=== PATIENT | male | born 1990 | race Caucasian/White ===

== ENCOUNTER → 2022-08-19 09:31 | Outpatient (CLI) | payer BC, SELFPAY ==
--- NOTE | 2022-08-19 | DI.US.S_ITS ---
PROCEDURE: US SCROTUM INDICATIONS: ATRESIA OF VAS DEFERENS TECHNIQUE: Real-time scanning was performed of the scrotum and testicles, with image documentation. Color and pulse Doppler interrogation was performed of both testicles. COMPARISON: None. FINDINGS: Bilateral vas deferens not visualized. Right: Testicle is normal in size at 5.1 x 1.8 x 3.1 cm. There is a 3 mm cyst within the right testis. Epididymis is normal in overall size and morphology. No hydrocele or varicoceles. Overlying scrotal skin is normal in thickness. Left: Testicle is normal in size at 5.1 x 1.8 x 3.1 cm. There is a complex cystic focus measuring 5 mm within the left testis. Epididymis is normal in overall size and morphology. No hydrocele or varicoceles. Overlying scrotal skin is normal in thickness. Doppler: Color and pulse Doppler demonstrate normal and symmetric arterial flow in both testicles. IMPRESSION: 1. Bilateral testicular cysts. 2. Nonvisualization of the vas deferens. Dictated by: Nicole Da Silva M.D. on 08/19/2022 at 11:40 Transcribed by: ZENA on 08/19/2022 at 11:41 Approved by: Nicole Da Silva M.D. on 08/19/2022 at 16:37
== END ==
PROVIDERS: Referring Provider Urology; Visit Provider Urology
DX: Q55.3 Atresia of vas deferens (principal); N44.2 Benign cyst of testis
CPT/HCPCS: 76870